=== PATIENT | female | born 1940 | race African-American/Black ===

== ENCOUNTER 2018-05-06 18:44 | Emergency (ER) | payer MEDICARE ==
[2018-05-06] MEDS ORDERED: Albuterol Sulfate 2.5 mg/0.5 ml Neb ONE (19:18)
[2018-05-06] MEDS ORDERED: Sodium Chloride For Inhalation 0.9% 3 ML NEB ONE (19:18)
--- NOTE | 2018-05-06 19:29 | RAD ---
CHEST ONE VIEW: 05/06/18 HISTORY: Dyspnea. COMPARISON: None available. There is opacification of the left hemithorax. Suggestion of possibly some slight volume loss change. Heart size is difficult to assess due to the opacification of left hemithorax. The right lung is sherman ar. IMPRESSION: 1. Postop sternotomy change. 2. Almost complete opacified left hemithorax. This could represent effusion or infiltrate. I do not see any definite surgical clips to suggest that this postoperative in nature. Clinical correlatio n is recommended. CT may be helpful in better assessment of the pleural versus parenchymal component of the left sided chest changes. POS: [facility]
[2018-05-06] MEDS ORDERED: cefTRIAXone\\ROCEPHIN 2 GM VIAL ONE (19:30)
[2018-05-06] MEDS ORDERED: methylPREDNISolone Sod Succ/PF 125 MG/2 ML VIAL ONE (19:30)
[2018-05-06] MEDS ORDERED: Magnesium Sulfate 2 GM/NS 0.9% 50 ML BAG ONE (19:30)
[2018-05-06] MEDS ORDERED: Sodium Chloride 0.9% 100 ML ONE (19:30)
[2018-05-06 19:36] LABS: #Basophils 0.1 thou/uL (0.0-0.2); #Lymphocytes 0.9 thou/uL (1.20-3.40); #Monocytes 0.7 thou/uL (0.11-0.59); #Neutrophils 4.9 thou/uL (1.40-6.50); %Basophils 1.9 % (0.0-1.0); %Eosinophils 0.2 % (0.0-10.0); %Lymphocytes 13.5 % (21.0-51.0); %Monocytes 11.1 % (0.0-10.0); %Neutrophils 73.3 % (42.0-75.0); Hemoglobin 15.8 g/dL (12.0-16.0); Mean Corpuscular HGB CONC 29.8 g/dL (32.0-36.0); Mean Corpuscular Hemoglobin 29.4 pg (27.0-31.0); Mean Corpuscular Volume 98.7 fL (78.0-98.0); Mean Platelet Volume 7.8 fL (7.4-10.4); Platelet Count 350 thou/uL (130-400); Red Blood Cell (RBC) Count 5.37 mill/uL (4.20-5.40); White Blood Cell (WBC) Count 6.6 thou/uL (4.8-10.8)
[2018-05-06] MEDS ORDERED: Sodium Chloride 0.9% 250 ML 250 ML ONE (19:42)
[2018-05-06 19:43] LABS: ALT (SGPT) 31 U/L (8-55); AST (SGOT) 26 U/L (5-34); Albumin 4.1 g/dL (3.4-4.8); Alkaline Phosphatase 85 U/L (40-150); Anion Gap 16 mmol/L (10-20); BUN (Urea Nitrogen) 9 mg/dL (9.8-20.1); Bilirubin, Total 0.8 mg/dL (0.2-1.2); Calc. Creatinine Clearance 0 mL/min (70-130); Carbon Dioxide 32 mmol/L (23-31); Chloride 87 mmol/L (98-107); Estimated GFR-MDRD Greater than 90; Globulin 4.7 g/dL (2.4-3.5); Glucose 151 mg/dL (83-110); Potassium 3.8 mmol/L (3.5-5.1); Protein, Total 8.8 g/dL (6.0-8.3); Sodium 131 mmol/L (136-145)
== END 2018-05-06 19:50 | disposition short-term general hospital (02) ==
LOC: NAV ERS 18:44
DX: J96.91 Respiratory failure, unspecified with hypoxia (principal); J18.1 Lobar pneumonia, unspecified organism; I10 Essential (primary) hypertension; J90 Pleural effusion, not elsewhere classified
CPT/HCPCS: 71045; 80053; 83605; 83880; 84484; 85025; 87040; 93005; 94760; 96374; 96375; J0696; J2930; J3370; J3475; J7050; J7611; J7620

== ENCOUNTER 2018-05-18 15:36 | Inpatient (IN) | payer MEDICARE ==
[2018-05-18] MEDS ORDERED: Dextrose 5% in Water 1,000 ML IV PRN (17:24)
[2018-05-18] MEDS ORDERED: HumaLOG 300 UNITS/3 ML VIAL SC PRN ×2 (17:24)
[2018-05-18] MEDS ORDERED: Dextrose 50% Abboject 50 ML SYRINGE SLOW IVP PRN (17:24)
[2018-05-18] MEDS: Mometasone/Formoterol 60 PUFF AER INH SCH (18:39)
--- NOTE | 2018-05-18 20:29 | HP ---
CHIEF COMPLAINT: Significant deconditioning for therapy. BRIEF HISTORY: This is a very pleasant 78-year-old, overweight, female, who was admitted to [facility] in [place] on 05/06/2018 with shortness of breath requiring mechanical ventilation and intubation. She apparently had significant opacification of the left lung and she underwent bronchoscopy, but cultures presently did not grow any organism. Her CT angiogram was negative for pulmonary embolism. She was on IV antibiotics, IV steroids, and breathing treatments, and slowly was tapered off and currently is on oral antibiotics, breathing treatments, and p.o. doxycycline. She was felt to be significantly weak and the only support is her and [place] and so she was felt to be a good candidate for inpatient rehabilitation at the [facility] facility. The patient is up in her bed. Denies any complaints. She still remains short of breath. Her spouse is in the room. Denies any fever or chills. Denies any chest pain or shortness of breath. Does have some dyspnea on exertion. PAST MEDICAL HISTORY: 1. Diabetes mellitus, type 2. 2. Hypertension. 3. Dyslipidemia. 4. Vitamin D deficiency. 5. Morbid obesity. PAST SURGICAL HISTORY: None documented. PSYCHOSOCIAL HISTORY: No tobacco, alcohol, or IV drug abuse. She and her live in the farm. MEDICATIONS: She has been transferred here on the following medications; 1. Amlodipine 10 mg daily. 2. Ecotrin 81 mg daily. 3. Calcium carbonate one tablet daily. 4. Carvedilol 12.5 mg b.i.d. 5. Vitamin D3 2000 international units daily. 6. Lovastatin 10 mg daily. 7. Metformin 500 mg b.i.d. 8. Nice-3 fatty acids one capsule daily. 9. Accupril 20 mg b.i.d. 10. Doxycycline 100 mg p.o. b.i.d., this is to go until May 25. 11. Lovenox 40 mg subcu daily. 12. Mucinex ER 600 mg p.o. b.i.d. 13. DuoNeb q.4 p.r.n. 14. Dulera 200/5 two puffs b.i.d., gargle after use. 15. Prednisone 10 mg q.a.m., which will be tapered. ALLERGIES: NO KNOWN DRUG ALLERGIES. FAMILY HISTORY: Noncontributory to current admission. REVIEW OF SYSTEMS: CARDIOVASCULAR SYSTEM: Denies any chest pain, PND, orthopnea, pedal edema, or palpitations. RESPIRATORY SYSTEM: Improving shortness of breath. She still has a cough. No hemoptysis. No pleuritic-type chest pain. GASTROINTESTINAL SYSTEM: Denies any nausea, vomiting, diarrhea, constipation, hematemesis, melena, or hematochezia. GENITOURINARY SYSTEM: Denies any frequency, urgency, dysuria, or hematuria. CENTRAL NERVOUS SYSTEM: Alert, awake, and oriented x3. Cranial nerves 2 through 12 intact. MOTOR SYSTEM: Just shows generalized weakness. LABORATORY DATA: Laboratory values from 05/16 shows a white count of 5.3, H and H are 14.3 and 46.8. Chemistry shows blood sugars of 87, 113, 91, 105, and 98; sodium 144; potassium 3.8; BUN and creatinine are 5 and 0.54. This is also from May 16. Last chest x-ray was done on 05/12 and it shows interval worsening of right basilar airspace opacities, but chest x-ray from May 16 shows that improved airspace opacities in right lung base. [id number] left and tiny right pleural effusions. Removal of endotracheal and nasogastric tube. IMPRESSION: 1. Community-acquired pneumonia, possibly bacterial. 2. Diabetes mellitus, type 2. 3. Hypertension. 4. Dyslipidemia. 5. Morbid obesity. 6. Significant deconditioning. 7. Improving hypoxemic-hypercapnic respiratory failure. PLAN: 1. Continue discharge medications. 2. 1800 calorie heart healthy ADA diet. 3. Accu-Cheks with sliding scale coverage. 4. DVT prophylaxis with Lovenox. 5. Decubitus precautions. 6. Stress ulcer prophylaxis. 7. Titrate oxygen. 8. Breathing treatments as needed. 9. Check CBC and BMP in the morning. 10. Consult PT/OT. 11. Discussed with the patient and spouse in detail. All questions answered. 12. Dr. Ilan Mckeon on-call this weekend. Job ID: [id number]
[2018-05-18] MEDS: Doxycycline 100 MG CAP PO SCH (20:44)
[2018-05-18] MEDS: Carvedilol 25 MG TAB PO SCH (20:45)
[2018-05-18] MEDS: guaiFENesin ER 600 MG TAB PO SCH (20:46)
[2018-05-18] MEDS: metFORMIN 500 MG TAB PO SCH (20:46)
[2018-05-18] MEDS: Aspirin 81 mg Enteric Coated Tablet PO SCH (20:46)
[2018-05-18] MEDS: Calcium Carbonate + Vit D 1 TAB PO SCH (21:01)
[2018-05-18] MEDS: Lisinopril 20 MG TAB PO SCH (21:03)
[2018-05-19 00:08] VITALS: BMI 42.9
[2018-05-19] MEDS: Mometasone/Formoterol 60 PUFF AER INH SCH ×2 (05:12→18:11)
[2018-05-19 05:25] LABS: Band 3 % (5-11); Eosinophils 2 % (0-10); Hemoglobin 12.8 g/dL (12.0-16.0); Lymphocytes 22 % (21-51); MDiff Complete? YES; Mean Corpuscular HGB CONC 30.3 g/dL (32.0-36.0); Mean Corpuscular Hemoglobin 29.4 pg (27.0-31.0); Mean Platelet Volume 7.5 fL (7.4-10.4); Monocytes 13 % (0-10); Neutrophil 60 % (42-75); Platelet Count 226 thou/uL (130-400); Platelet Morphology Comment Appears Adequate; RBC Distribution Width 14.4 % (11.5-14.5); RBC Morphology Normal; Red Blood Cell (RBC) Count 4.36 mill/uL (4.20-5.40); White Blood Cell (WBC) Count 4.6 thou/uL (4.8-10.8)
[2018-05-19 05:35] LABS: BUN (Urea Nitrogen) Less than 4 mg/dL (9.8-20.1); Calc. Creatinine Clearance 161 mL/min (70-130); Calcium 10.4 mg/dL (7.8-10.44); Estimated GFR-MDRD Greater than 90; Glucose 101 mg/dL (83-110)
[2018-05-19 05:39] LABS: Chloride 98 mmol/L (98-107); Potassium 3.2 mmol/L (3.5-5.1); Sodium 146 mmol/L (136-145)
[2018-05-19 06:07] LABS: Anion Gap 13 mmol/L (10-20); Carbon Dioxide 38 mmol/L (23-31)
[2018-05-19] MEDS: predniSONE 5 MG TAB PO SCH (08:36)
[2018-05-19] MEDS: Fish Oil 1,000 MG CAP PO SCH (08:36)
[2018-05-19] MEDS: Lisinopril 20 MG TAB PO SCH ×2 (08:36→21:10)
[2018-05-19] MEDS: Amlodipine 10 MG TAB PO SCH (08:37)
[2018-05-19] MEDS: Doxycycline 100 MG CAP PO SCH ×2 (08:37→21:10)
[2018-05-19] MEDS: Carvedilol 25 MG TAB PO SCH ×2 (08:37→21:10)
[2018-05-19] MEDS: metFORMIN 500 MG TAB PO SCH ×2 (08:38→21:10)
[2018-05-19] MEDS: Enoxaparin Sodium 40 MG/0.4 ML SYRINGE SC SCH (08:38)
[2018-05-19] MEDS: guaiFENesin ER 600 MG TAB PO SCH ×2 (08:39→21:10)
[2018-05-19] MEDS: Calcium Carbonate + Vit D 1 TAB PO SCH ×2 (08:39→21:11)
[2018-05-19] MEDS: Simvastatin 10 MG TAB PO SCH (21:08)
[2018-05-19] MEDS: Aspirin 81 mg Enteric Coated Tablet PO SCH (21:10)
[2018-05-20] MEDS: Mometasone/Formoterol 60 PUFF AER INH SCH ×2 (05:27→18:32)
[2018-05-20] MEDS: Amlodipine 10 MG TAB PO SCH (08:59)
[2018-05-20] MEDS: predniSONE 5 MG TAB PO SCH (08:59)
[2018-05-20] MEDS: Carvedilol 25 MG TAB PO SCH ×2 (09:00→20:51)
[2018-05-20] MEDS: Calcium Carbonate + Vit D 1 TAB PO SCH ×2 (09:00→20:53)
[2018-05-20] MEDS: metFORMIN 500 MG TAB PO SCH ×2 (09:01→20:53)
[2018-05-20] MEDS: Doxycycline 100 MG CAP PO SCH ×2 (09:01→20:50)
[2018-05-20] MEDS: guaiFENesin ER 600 MG TAB PO SCH ×2 (09:01→20:51)
[2018-05-20] MEDS: Enoxaparin Sodium 40 MG/0.4 ML SYRINGE SC SCH (09:01)
[2018-05-20] MEDS: Fish Oil 1,000 MG CAP PO SCH (09:01)
[2018-05-20] MEDS: Lisinopril 20 MG TAB PO SCH ×2 (09:01→20:52)
--- NOTE | 2018-05-20 09:40 | PRG ---
DATE OF SERVICE: 05/20/2018 This patient is a 78-year-old female, who developed significant pneumonia and was admitted and intubated at [facility]. She eventually was stabilized and extubated, but needed significant therapy. She was started on IV antibiotics, IV steroids, and breathing treatment was slowly tapered off. She was transferred here for physical therapy and occupational therapy to increase her strength and her stamina mainly for inpatient rehab. SUBJECTIVE: The patient has awakened this morning and states she is doing fine and has no complaints. She states she slept well and she is hungry. OBJECTIVE: VITAL SIGNS: Reveal blood pressure this morning 152/68, pulse 76, respirations 22, and O2 saturation 95% on 4 L. GENERAL: This is a well-developed, well-nourished, obese female, in no apparent distress at this time. HEENT: Reveals normocephalic and nontraumatic cranium. The pupils are equally round and reactive. Extraocular movements are intact. Nose and throat are slightly dry, but clear. NECK: Supple without masses, nodes, or bruits. CHEST: Distant and shallow breaths are noted. No rales, no rhonchi, no wheezes are noted. The patient has occasional cough, which is nonproductive. HEART: Reveals a regular rate and rhythm without murmurs, gallops, or rubs. ABDOMEN: Morbidly obese, soft, nontender without organomegaly. Normal bowel sounds are noted. No rebound or guarding is noted. : Deferred. EXTREMITIES: Reveal no clubbing, cyanosis, or edema. IMPRESSION: 1. Community-acquired pneumonia. 2. Diabetes, type 2. 3. Hypertension. 4. Hyperlipidemia. 5. Morbid obesity. 6. Significant deconditioning. 7. Improving hypoxemic hypercapnic respiratory failure. Zwkur-[id number] sugars reveal the patient's sugar yesterday morning was 84, before lunch 124, before supper 98, before bedtime 95, and this morning her fasting is 95, so her sugars were under excellent control. PLAN: 1. Continue present medication. 2. Continue 1800 calorie ADA diet. 3. Accu-Cheks a.c. and at bedtime and continue to monitor closely. 4. DVT prophylaxis with Lovenox. 5. Stress ulcer prophylaxis. 6. Decubitus precautions. 7. Titrate oxygen down as able. 8. Continue breathing treatments. 9. Continue Physical Therapy and Occupational Therapy. Job ID: [id number]
[2018-05-20] MEDS: Simvastatin 10 MG TAB PO SCH (20:50)
[2018-05-20] MEDS: Aspirin 81 mg Enteric Coated Tablet PO SCH (20:51)
[2018-05-21] MEDS: Mometasone/Formoterol 60 PUFF AER INH SCH ×2 (05:34→18:41)
--- NOTE | 2018-05-21 08:43 | PRG ---
DATE OF SERVICE: 05/21/2018 SUBJECTIVE: This patient is a 78-year-old white female, who developed a significant bilateral pneumonia with sherry-out lung. She had to be admitted to [facility], was intubated in the ICU. Started on IV antibiotics, IV steroids. She eventually was able to be extubated, but she was transferred here because of extreme weakness. She was here for physical therapy and occupational therapy to increase her strength and stamina. OBJECTIVE: GENERAL: The patient states she is doing okay. She is sleepy this morning as always. States she is hungry this morning. VITAL SIGNS: This morning, reveal blood pressure 111/51, pulse 75 to 94, respirations 18 to 20, O2 saturation 95% on 3.5 L, and T-max 98.1. GENERAL: This is a well-developed, well-nourished, obese white female, in no apparent distress at this time. HEENT: Reveals normocephalic, nontraumatic cranium. Pupils are equal, round, and reactive. Extraocular movements are intact. Nose and throat are moist this morning. NECK: Supple without masses, nodes, or bruits. CHEST: Reveals shallow breaths and distant breath sounds. No rales, no rhonchi, no wheezes are noted. The patient has no cough today. HEART: Reveals a regular rate and rhythm without murmurs, gallops, rubs. ABDOMEN: Morbidly obese, soft, nontender without organomegaly. Normal bowel sounds are noted. No rebound or guarding is noted. : Deferred. EXTREMITIES: Reveal no clubbing, cyanosis, or edema. IMPRESSION: 1. Diabetes type 2. 2. Community-acquired pneumonia. 3. Hypertension. 4. Hyperlipidemia. 5. Significant deconditioning. 6. Improving hypoxic-hypercapnic respiratory failure. 7. Morbid obesity. 8. Generalized weakness. PLAN: 1. Continue to monitor the patient's sugars closely. 2. Continue present medication. 3. Continue 1800 calorie ADA diet. 4. Accu-Cheks a.c. and h.s. 5. DVT prophylaxis with Lovenox. 6. Stress ulcer prophylaxis. 7. Decubitus precautions. 8. Titrate oxygen as able. 9. Continue breathing treatments. 10. Continue PT and OT. Job ID: [id number]
[2018-05-21] MEDS: predniSONE 5 MG TAB PO SCH (09:02)
[2018-05-21] MEDS: Calcium Carbonate + Vit D 1 TAB PO SCH ×2 (09:02→21:18)
[2018-05-21] MEDS: Amlodipine 10 MG TAB PO SCH (09:02)
[2018-05-21] MEDS: Enoxaparin Sodium 40 MG/0.4 ML SYRINGE SC SCH (09:03)
[2018-05-21] MEDS: Doxycycline 100 MG CAP PO SCH ×2 (09:03→21:17)
[2018-05-21] MEDS: Carvedilol 25 MG TAB PO SCH ×2 (09:03→21:17)
[2018-05-21] MEDS: Fish Oil 1,000 MG CAP PO SCH (09:03)
[2018-05-21] MEDS: metFORMIN 500 MG TAB PO SCH ×2 (09:04→21:17)
[2018-05-21] MEDS: guaiFENesin ER 600 MG TAB PO SCH ×2 (09:04→21:17)
[2018-05-21] MEDS: Lisinopril 20 MG TAB PO SCH ×2 (09:04→21:17)
[2018-05-21] MEDS: Simvastatin 10 MG TAB PO SCH (21:16)
[2018-05-21] MEDS: Aspirin 81 mg Enteric Coated Tablet PO SCH (21:17)
[2018-05-22] MEDS: Mometasone/Formoterol 60 PUFF AER INH SCH ×2 (05:26→18:34)
[2018-05-22] MEDS: Doxycycline 100 MG CAP PO SCH ×2 (08:52→21:40)
[2018-05-22] MEDS: Amlodipine 10 MG TAB PO SCH (08:52)
[2018-05-22] MEDS: Enoxaparin Sodium 40 MG/0.4 ML SYRINGE SC SCH (08:52)
[2018-05-22] MEDS: predniSONE 5 MG TAB PO SCH (08:52)
[2018-05-22] MEDS: Fish Oil 1,000 MG CAP PO SCH (08:53)
[2018-05-22] MEDS: Carvedilol 25 MG TAB PO SCH ×2 (08:53→21:40)
[2018-05-22] MEDS: metFORMIN 500 MG TAB PO SCH ×2 (08:54→21:41)
[2018-05-22] MEDS: guaiFENesin ER 600 MG TAB PO SCH ×2 (08:54→21:40)
[2018-05-22] MEDS: Lisinopril 20 MG TAB PO SCH ×2 (08:54→21:41)
[2018-05-22] MEDS: Calcium Carbonate + Vit D 1 TAB PO SCH ×2 (08:54→21:42)
[2018-05-22] MEDS ORDERED: Simethicone Chewable 80 MG TAB PO PRN (13:24)
--- NOTE | 2018-05-22 14:31 | PRG ---
DATE OF SERVICE: 05/22/2018 SUBJECTIVE: Ms. Valiente is doing well, improving with therapy except having some gas. Denies any chest pain or shortness of breath. Denies any nausea or vomiting. OBJECTIVE: VITAL SIGNS: She is afebrile. Heart rate 73, respirations 20, oxygen saturation on 3 L, blood pressure 130/57. CARDIOVASCULAR: S1 and S2 plus. RESPIRATORY: Normal vesicular breath sounds. ABDOMEN: Soft, obese, and nontender. Bowel sounds heard in all quadrants. EXTREMITIES: Without cyanosis or clubbing. Trace edema. LABORATORY DATA: Blood sugars are 91, 90, 96, and 93. IMPRESSION: 1. Diabetes mellitus, type 2. 2. Hypertension. 3. Dyslipidemia. 4. Vitamin D deficiency. 5. Morbid obesity. 6. Resolving hypoxemic respiratory failure. PLAN: 1. Start simethicone 160 mg p.o. t.i.d. p.r.n. 2. Advise nursing to titrate oxygen. 3. Continue physical therapy. 4. 1800 calorie heart healthy ADA diet. 5. DVT and stress ulcer prophylaxis. 6. Decubitus precautions. 7. Routine laboratory values. Job ID: [id number]
[2018-05-22] MEDS: Aspirin 81 mg Enteric Coated Tablet PO SCH (21:39)
[2018-05-22] MEDS: Simvastatin 10 MG TAB PO SCH (21:41)
[2018-05-23 05:31] LABS: #Eosinphils 0.1 thou/uL (0.0-0.7); #Lymphocytes 1.1 thou/uL (1.20-3.40); #Monocytes 0.5 thou/uL (0.11-0.59); #Neutrophils 2.4 thou/uL (1.40-6.50); %Eosinophils 2.6 % (0.0-10.0); %Lymphocytes 26.2 % (21.0-51.0); %Monocytes 11.1 % (0.0-10.0); %Neutrophils 59.2 % (42.0-75.0); Hemoglobin 11.8 g/dL (12.0-16.0); Mean Corpuscular HGB CONC 29.7 g/dL (32.0-36.0); Mean Corpuscular Hemoglobin 29.3 pg (27.0-31.0); Mean Corpuscular Volume 98.5 fL (78.0-98.0); Mean Platelet Volume 8.5 fL (7.4-10.4); Platelet Count 184 thou/uL (130-400); RBC Distribution Width 14.9 % (11.5-14.5); Red Blood Cell (RBC) Count 4.04 mill/uL (4.20-5.40); White Blood Cell (WBC) Count 4.1 thou/uL (4.8-10.8)
[2018-05-23 05:53] LABS: BUN (Urea Nitrogen) 7 mg/dL (9.8-20.1); Calc. Creatinine Clearance 167 mL/min (70-130); Estimated GFR-MDRD Greater than 90; Glucose 98 mg/dL (83-110)
[2018-05-23 06:03] LABS: Anion Gap 10 mmol/L (10-20); Chloride 93 mmol/L (98-107); Sodium 143 mmol/L (136-145)
[2018-05-23 06:05] LABS: Carbon Dioxide 43 mmol/L (23-31); Potassium 2.8 mmol/L (3.5-5.1)
[2018-05-23] MEDS: Mometasone/Formoterol 60 PUFF AER INH SCH ×2 (06:31→17:38)
[2018-05-23] MEDS: Potassium Chloride 20 MEQ TAB PO SCH ×2 (06:32→09:10)
[2018-05-23] MEDS: predniSONE 5 MG TAB PO SCH (08:11)
[2018-05-23] MEDS: metFORMIN 500 MG TAB PO SCH ×2 (09:09→20:52)
[2018-05-23] MEDS: Lisinopril 20 MG TAB PO SCH ×2 (09:09→20:51)
[2018-05-23] MEDS: Fish Oil 1,000 MG CAP PO SCH (09:09)
[2018-05-23] MEDS: Carvedilol 25 MG TAB PO SCH ×2 (09:09→20:51)
[2018-05-23] MEDS: Doxycycline 100 MG CAP PO SCH ×2 (09:09→20:51)
[2018-05-23] MEDS: Amlodipine 10 MG TAB PO SCH (09:09)
[2018-05-23] MEDS: guaiFENesin ER 600 MG TAB PO SCH ×2 (09:10→20:51)
[2018-05-23] MEDS: Enoxaparin Sodium 40 MG/0.4 ML SYRINGE SC SCH (09:11)
[2018-05-23] MEDS: Calcium Carbonate + Vit D 1 TAB PO SCH ×2 (09:11→20:50)
--- NOTE | 2018-05-23 13:48 | PRG ---
DATE OF SERVICE: 05/23/2018 SUBJECTIVE: Ms. Valiente is doing well. Denies any complaints. Slowly improving with therapy. Unfortunately, nursing is having a difficult time titrating her oxygen off, so she most likely will have to go home on oxygen, but when it comes to get, we will make the arrangements. Her potassium was low this morning. She denies any diarrhea, any nausea or vomiting. Potassium has been replaced. We will recheck potassium and magnesium level at 2 p.m. today. Discussed with nursing and no other questions or concerns. OBJECTIVE: VITAL SIGNS: She is afebrile. Heart rate 88, respirations 20, oxygen saturation 92% on 2 L via nasal cannula, and blood pressure is 133/60. CARDIOVASCULAR: S1 and S2 plus. RESPIRATORY: Normal vesicular breath sounds with occasional rhonchi. ABDOMEN: Soft, obese, nontender. Bowel sounds heard in all quadrants. EXTREMITIES: Without cyanosis or clubbing. Trace edema. CENTRAL NERVOUS SYSTEM: Alert, awake, and oriented x3. Cranial nerves 2 through 12 are intact. Motor system, generalized weakness. LABORATORY VALUES: Sodium 143, potassium 2.8, BUN and creatinine of 7 and 0.5. Blood count shows a white count of 4.1, hemoglobin and hematocrit are 11.8 and 39.8. IMPRESSION: 1. Improving pneumonia, community acquired. 2. Hypokalemia, unknown etiology. 3. Morbid obesity. 4. Hypoxemia. 5. Dyslipidemia. 6. Hypertension. PLAN: 1. Continue current medications. 2. 1800-calorie heart healthy ADA diet. 3. DVT and stress ulcer prophylaxis. 4. Decubitus precautions. 5. Replace potassium. 6. Decrease prednisone to 5 mg daily. 7. Continue physical therapy. 8. Discussed with the patient and nursing in detail. All questions answered. Job ID: [id number]
[2018-05-23 14:29] LABS: Magnesium 1.5 mg/dL (1.6-2.6)
[2018-05-23] MEDS: Aspirin 81 mg Enteric Coated Tablet PO SCH (20:50)
[2018-05-23] MEDS: Simvastatin 10 MG TAB PO SCH (20:52)
[2018-05-24] MEDS: Mometasone/Formoterol 60 PUFF AER INH SCH ×2 (06:01→18:31)
[2018-05-24] MEDS: Amlodipine 10 MG TAB PO SCH (08:30)
[2018-05-24] MEDS: predniSONE 5 MG TAB PO SCH (08:30)
[2018-05-24] MEDS: Doxycycline 100 MG CAP PO SCH ×2 (08:32→20:42)
[2018-05-24] MEDS: Carvedilol 25 MG TAB PO SCH ×2 (08:32→20:42)
[2018-05-24] MEDS: Calcium Carbonate + Vit D 1 TAB PO SCH ×2 (08:32→20:41)
[2018-05-24] MEDS: Enoxaparin Sodium 40 MG/0.4 ML SYRINGE SC SCH (08:32)
[2018-05-24] MEDS: guaiFENesin ER 600 MG TAB PO SCH ×3 (08:33→22:45)
[2018-05-24] MEDS: metFORMIN 500 MG TAB PO SCH ×2 (08:33→20:43)
[2018-05-24] MEDS: Lisinopril 20 MG TAB PO SCH ×2 (08:33→20:43)
[2018-05-24] MEDS: Fish Oil 1,000 MG CAP PO SCH (08:33)
--- NOTE | 2018-05-24 14:20 | PRG ---
DATE OF SERVICE: 05/24/2018 SUBJECTIVE: Ms. Valiente is doing well except for some gurgling sensation in her ears when she swallows or yawns. No chest pain or shortness of breath. She is down to 3 L of oxygen. She is participating with therapy. Her prednisone has been decreased to 5 mg daily from today. We will add Mucinex. No other concerns or questions. OBJECTIVE: VITAL SIGNS: She is afebrile. Heart rate 70, respirations 20, oxygen saturation 96% on 3 L, blood pressure 129/61. CARDIOVASCULAR: S1 and S2 plus. RESPIRATORY: Normal vesicular breath sounds. ABDOMEN: Soft, obese, nontender. Bowel sounds heard in all quadrants. EXTREMITIES: Without cyanosis, clubbing. Peripheral pulses are palpable. CENTRAL NERVOUS SYSTEM: Alert, awake, and oriented x3. Cranial nerves 2 through 12 intact. Motor system, grossly nonfocal. LABORATORY VALUES: Repeat potassium level is up to 4.0, and magnesium was slightly low at 1.5. Blood sugars are 127, 93, 94, and 90. IMPRESSION: 1. Hypomagnesemia. 2. Resolving pneumonitis. 3. Morbid obesity. 4. Resolving acute hypoxemic respiratory failure. 5. Diabetes mellitus type 2. 6. Hypertension. PLAN: 1. Replace magnesium with Mag-Ox 400 mg p.o. t.i.d. 2. Mucinex 1200 mg p.o. b.i.d. 3. Continue current medications. 4. Physical therapy. 5. Nutritional support. 6. 1800 calorie heart healthy ADA diet. 7. Accu-Cheks, sliding scale coverage. Job ID: [id number]
[2018-05-24] MEDS: Aspirin 81 mg Enteric Coated Tablet PO SCH (20:41)
[2018-05-24] MEDS: Magnesium Oxide 400 MG TAB PO SCH (20:43)
[2018-05-24] MEDS: Simvastatin 10 MG TAB PO SCH (20:43)
[2018-05-25] MEDS: Mometasone/Formoterol 60 PUFF AER INH SCH ×2 (05:48→18:29)
[2018-05-25] MEDS: Amlodipine 10 MG TAB PO SCH (08:30)
[2018-05-25] MEDS: predniSONE 5 MG TAB PO SCH (08:30)
[2018-05-25] MEDS: Calcium Carbonate + Vit D 1 TAB PO SCH ×2 (08:31→20:26)
[2018-05-25] MEDS: Doxycycline 100 MG CAP PO SCH ×2 (08:32→20:28)
[2018-05-25] MEDS: Enoxaparin Sodium 40 MG/0.4 ML SYRINGE SC SCH (08:32)
[2018-05-25] MEDS: Carvedilol 25 MG TAB PO SCH ×2 (08:32→20:28)
[2018-05-25] MEDS: Fish Oil 1,000 MG CAP PO SCH (08:33)
[2018-05-25] MEDS: Magnesium Oxide 400 MG TAB PO SCH ×2 (08:33→20:28)
[2018-05-25] MEDS: metFORMIN 500 MG TAB PO SCH ×2 (08:33→20:28)
[2018-05-25] MEDS: Lisinopril 20 MG TAB PO SCH ×2 (08:33→20:28)
[2018-05-25] MEDS: guaiFENesin ER 600 MG TAB PO SCH ×2 (08:33→20:28)
--- NOTE | 2018-05-25 14:20 | PRG ---
DATE OF SERVICE: 05/25/2018 SUBJECTIVE: Ms. Valiente is doing well. She is sitting in bed with oxygen cannula in her nostril, but oxygen is not turned on. Checked her oxygen on room air and it was 79%, turned it back to 3 L and went up to 93%. She did not complain of any shortness of breath during this time. OBJECTIVE: VITAL SIGNS: She is afebrile, heart rate 72, respirations 22, blood pressure 120/60, and oxygen saturation 93% on 3 L. CARDIOVASCULAR: S1 and S2 plus. RESPIRATORY: Normal vesicular breath sounds with occasional rhonchi. ABDOMEN: Soft, obese, nontender. Bowel sounds heard in all quadrants. EXTREMITIES: Without cyanosis, clubbing. Trace edema. CENTRAL NERVOUS SYSTEM: Alert, awake, and oriented x3. Cranial nerves 2 through 12 intact. Grossly nonfocal. LABORATORY DATA: Blood sugars are 90, 84, 103, 99, and 98. IMPRESSION: 1. Improving community-acquired pneumonia. 2. Hypoxemia due to acute hypoxemic respiratory failure. 3. Diabetes mellitus type 2. 4. Deconditioning. 5. Obesity. 6. Hypertension. PLAN: 1. Continue current medications. 2. 1800 calorie heart healthy ADA diet. 3. Accu-Cheks with sliding scale coverage. 4. DVT and stress ulcer prophylaxis. 5. Decubitus precautions. 6. Routine laboratory values. 7. Titrate oxygen. 8. Breathing treatments as needed. 9. Continue physical therapy. 10. Discussed with the patient in detail. All questions answered. Job ID: [id number]
[2018-05-25] MEDS: Simvastatin 10 MG TAB PO SCH (20:26)
[2018-05-25] MEDS: Aspirin 81 mg Enteric Coated Tablet PO SCH (20:28)
[2018-05-26] MEDS: Mometasone/Formoterol 60 PUFF AER INH SCH ×2 (05:47→17:52)
[2018-05-26] MEDS: Enoxaparin Sodium 40 MG/0.4 ML SYRINGE SC SCH (08:46)
[2018-05-26] MEDS: Calcium Carbonate + Vit D 1 TAB PO SCH ×2 (08:46→20:14)
[2018-05-26] MEDS: Carvedilol 25 MG TAB PO SCH ×2 (08:47→20:15)
[2018-05-26] MEDS: Fish Oil 1,000 MG CAP PO SCH (08:47)
[2018-05-26] MEDS: metFORMIN 500 MG TAB PO SCH ×2 (08:47→20:17)
[2018-05-26] MEDS: guaiFENesin ER 600 MG TAB PO SCH ×2 (08:47→20:14)
[2018-05-26] MEDS: Lisinopril 20 MG TAB PO SCH ×2 (08:48→20:14)
[2018-05-26] MEDS: Magnesium Oxide 400 MG TAB PO SCH ×2 (08:48→20:17)
[2018-05-26] MEDS: Amlodipine 10 MG TAB PO SCH (08:48)
[2018-05-26] MEDS: predniSONE 5 MG TAB PO SCH (08:49)
[2018-05-26] MEDS: Aspirin 81 mg Enteric Coated Tablet PO SCH (20:14)
[2018-05-26] MEDS: Simvastatin 10 MG TAB PO SCH (20:16)
[2018-05-27] MEDS: Mometasone/Formoterol 60 PUFF AER INH SCH ×2 (05:56→17:29)
[2018-05-27] MEDS: Lisinopril 20 MG TAB PO SCH ×2 (09:33→20:22)
[2018-05-27] MEDS: guaiFENesin ER 600 MG TAB PO SCH ×2 (09:34→20:23)
[2018-05-27] MEDS: Calcium Carbonate + Vit D 1 TAB PO SCH ×2 (09:34→20:21)
[2018-05-27] MEDS: metFORMIN 500 MG TAB PO SCH ×2 (09:34→20:24)
[2018-05-27] MEDS: Fish Oil 1,000 MG CAP PO SCH (09:34)
[2018-05-27] MEDS: Magnesium Oxide 400 MG TAB PO SCH ×2 (09:34→20:24)
[2018-05-27] MEDS: Amlodipine 10 MG TAB PO SCH (09:35)
[2018-05-27] MEDS: predniSONE 5 MG TAB PO SCH (09:35)
[2018-05-27] MEDS: Carvedilol 25 MG TAB PO SCH ×2 (09:36→20:23)
[2018-05-27] MEDS: Enoxaparin Sodium 40 MG/0.4 ML SYRINGE SC SCH (09:38)
--- NOTE | 2018-05-27 16:13 | PRG ---
DATE OF SERVICE: 05/27/2018 SUBJECTIVE: Ms. Valiente is doing well. Denies any complaints, resting comfortably, tolerating her therapy. No PND or orthopnea. Cough has pretty much resolved. Continues to need oxygen. OBJECTIVE: VITAL SIGNS: She is afebrile. Heart rate is 66, respirations 20, oxygen saturation 100% on 3 L nasal cannula, and blood pressure 123/59. CARDIOVASCULAR: S1 and S2 plus. RESPIRATORY: Normal vesicular breath sounds. ABDOMEN: Soft, obese, nontender. Bowel sounds heard in all quadrants. EXTREMITIES: Without cyanosis, clubbing. Peripheral pulses are palpable. CENTRAL NERVOUS SYSTEM: Alert, awake, and oriented x3. Cranial nerves 2 through 12 grossly intact. Motor system examination is grossly nonfocal. LABORATORY DATA: Blood sugars are 115, 82, 96, 101, and 89. IMPRESSION: 1. Resolving community-acquired pneumonia. 2. Persistent hypoxemia, requiring oxygen. 3. Diabetes mellitus type 2. 4. Hypertension. 5. Deconditioning. 6. Morbid obesity. PLAN: 1. Continue current medications. 2. 1800-calorie heart healthy ADA diet. 3. Accu-Cheks with sliding scale coverage. 4. DVT and stress ulcer prophylaxis. 5. Decubitus precautions. 6. Titrate oxygen. 7. Continue therapy. 8. Routine laboratory values. Job ID: [id number]
[2018-05-27] MEDS: Simvastatin 10 MG TAB PO SCH (20:22)
[2018-05-27] MEDS: Aspirin 81 mg Enteric Coated Tablet PO SCH (20:22)
[2018-05-28] MEDS: Mometasone/Formoterol 60 PUFF AER INH SCH ×2 (05:58→18:04)
[2018-05-28] MEDS: predniSONE 5 MG TAB PO SCH (08:26)
[2018-05-28] MEDS: Amlodipine 10 MG TAB PO SCH (08:26)
[2018-05-28] MEDS: guaiFENesin ER 600 MG TAB PO SCH ×2 (08:26→20:19)
[2018-05-28] MEDS: Calcium Carbonate + Vit D 1 TAB PO SCH ×2 (08:26→20:18)
[2018-05-28] MEDS: Fish Oil 1,000 MG CAP PO SCH (08:26)
[2018-05-28] MEDS: Enoxaparin Sodium 40 MG/0.4 ML SYRINGE SC SCH (08:26)
[2018-05-28] MEDS: Carvedilol 25 MG TAB PO SCH ×2 (08:26→20:20)
[2018-05-28] MEDS: Magnesium Oxide 400 MG TAB PO SCH ×2 (08:27→20:19)
[2018-05-28] MEDS: Lisinopril 20 MG TAB PO SCH ×2 (08:27→20:19)
[2018-05-28] MEDS: metFORMIN 500 MG TAB PO SCH ×2 (08:27→20:20)
--- NOTE | 2018-05-28 15:36 | PRG ---
DATE OF SERVICE: 05/28/2018 SUBJECTIVE: Ms. Valiente was doing well. Denies any complaints except constipation. Her [id number] is in the room. No fever or chills. No chest pain or shortness of breath. OBJECTIVE: VITAL SIGNS: She is afebrile. Heart rate 64, respirations 20, oxygen saturation 97%, blood pressure 123/58. CARDIOVASCULAR: S1, S2 plus. RESPIRATORY: Normal vesicular breath sounds. ABDOMEN: Soft, obese, nontender, bowel sounds heard in all quadrants. EXTREMITIES: Without cyanosis, clubbing. She is down to 2 L of oxygen. CENTRAL NERVOUS SYSTEM: Alert, awake, and oriented x3. Cranial nerves 2 through 12 intact. Motor system examination is grossly nonfocal. LABORATORY DATA: Blood sugars are 116, 107, 86, and 103. IMPRESSION: 1. Resolving community-acquired pneumonia. 2. Resolving hypoxemic respiratory failure. 3. Diabetes mellitus type 2. 4. Hypertension. 5. Improving deconditioning. 6. Constipation. PLAN: 1. Continue current medications. 2. Milk of magnesia 30 mL p.o. b.i.d. p.r.n. and Dulcolax suppository b.i.d. p.r.n. 3. Continue to titrate oxygen. 4. DVT and stress ulcer prophylaxis. 5. Decubitus precautions. 6. Stop prednisone after tomorrow's dose. 7. Physical therapy. Discussed with patient and family in detail. All questions answered. Job ID: [id number]
[2018-05-28] MEDS: Milk Of Magnesia 30 ML UDCUP PO PRN (18:03)
[2018-05-28] MEDS: Aspirin 81 mg Enteric Coated Tablet PO SCH (20:19)
[2018-05-28] MEDS: Simvastatin 10 MG TAB PO SCH (20:19)
[2018-05-29 05:27] LABS: #Eosinphils 0.1 thou/uL (0.0-0.7); #Lymphocytes 1.1 thou/uL (1.20-3.40); #Monocytes 0.4 thou/uL (0.11-0.59); #Neutrophils 1.7 thou/uL (1.40-6.50); %Basophils 1.1 % (0.0-1.0); %Eosinophils 4.4 % (0.0-10.0); %Lymphocytes 32.8 % (21.0-51.0); %Monocytes 11.8 % (0.0-10.0); %Neutrophils 49.9 % (42.0-75.0); Hemoglobin 11.7 g/dL (12.0-16.0); Mean Corpuscular HGB CONC 29.4 g/dL (32.0-36.0); Mean Corpuscular Hemoglobin 28.9 pg (27.0-31.0); Mean Corpuscular Volume 98.1 fL (78.0-98.0); Mean Platelet Volume 7.6 fL (7.4-10.4); Platelet Count 222 thou/uL (130-400); RBC Distribution Width 15.3 % (11.5-14.5); Red Blood Cell (RBC) Count 4.05 mill/uL (4.20-5.40); White Blood Cell (WBC) Count 3.4 thou/uL (4.8-10.8)
[2018-05-29 05:37] LABS: BUN (Urea Nitrogen) 7 mg/dL (9.8-20.1); Calc. Creatinine Clearance 167 mL/min (70-130); Calcium 10.5 mg/dL (7.8-10.44); Estimated GFR-MDRD Greater than 90; Glucose 95 mg/dL (83-110)
[2018-05-29 05:51] LABS: Chloride 101 mmol/L (98-107); Potassium 3.8 mmol/L (3.5-5.1); Sodium 144 mmol/L (136-145)
[2018-05-29] MEDS: Mometasone/Formoterol 60 PUFF AER INH SCH ×2 (05:53→18:19)
[2018-05-29 05:56] LABS: Carbon Dioxide 34 mmol/L (23-31)
[2018-05-29 06:02] LABS: Anion Gap 13 mmol/L (10-20)
[2018-05-29] MEDS: predniSONE 5 MG TAB PO SCH (08:42)
[2018-05-29] MEDS: Calcium Carbonate + Vit D 1 TAB PO SCH (08:42)
[2018-05-29] MEDS: Amlodipine 10 MG TAB PO SCH (08:42)
[2018-05-29] MEDS: Carvedilol 25 MG TAB PO SCH ×2 (08:43→20:36)
[2018-05-29] MEDS: Enoxaparin Sodium 40 MG/0.4 ML SYRINGE SC SCH (08:43)
[2018-05-29] MEDS: guaiFENesin ER 600 MG TAB PO SCH ×2 (08:43→20:36)
[2018-05-29] MEDS: Fish Oil 1,000 MG CAP PO SCH (08:43)
[2018-05-29] MEDS: metFORMIN 500 MG TAB PO SCH ×2 (08:44→20:35)
[2018-05-29] MEDS: Magnesium Oxide 400 MG TAB PO SCH ×2 (08:44→20:35)
[2018-05-29] MEDS: Lisinopril 20 MG TAB PO SCH ×2 (08:44→20:35)
[2018-05-29] MEDS: Milk Of Magnesia 30 ML UDCUP PO PRN (13:36)
[2018-05-29] MEDS: Bisacodyl 10 MG SUPP PR PRN (13:36)
--- NOTE | 2018-05-29 13:49 | PRG ---
DATE OF SERVICE: 05/29/2018 SUBJECTIVE: Ms. Valiente is doing well. Denies any complaints except for persistent constipation. She is agreeable to take the suppository. No chest pain or shortness of breath. Does have some sinus drainage. No fever or chills. No family at bedside. OBJECTIVE: VITAL SIGNS: She is afebrile. Heart rate 65, respirations 18, oxygen saturation 96% on 2 L, and blood pressure is 123/59. CARDIOVASCULAR: S1 and S2 plus. RESPIRATORY: Normal vesicular breath sounds. ABDOMEN: Soft, obese, and nontender. Bowel sounds heard in all quadrants. EXTREMITIES: Without cyanosis or clubbing. Peripheral pulses are palpable. CENTRAL NERVOUS SYSTEM: Alert, awake, and oriented x3. Cranial nerves 2 through 12 intact. Motor system examination is grossly nonfocal. LABORATORY VALUES: White count of 3.4, H and H are 11.7 and 39.7. Sodium 144, potassium 3.8, BUN and creatinine 7 and 0.50. Blood sugars are 122, 101, 95, 82, and 109. Calcium was mildly elevated at 10.5; on May 23, it was 11; on May 19, it was 10.4. We will continue to monitor. IMPRESSION: 1. Hypercalcemia. 2. Resolving community-acquired pneumonia. 3. Diabetes mellitus, type 2. 4. Hypertension. 5. Dyslipidemia. 6. Morbid obesity. 7. Constipation. PLAN: 1. Continue milk of magnesia, and advised her to use the Dulcolax suppository as needed. 2. 1800 calorie heart healthy ADA diet. 3. We will stop her calcium supplementation. 4. Continue physical therapy. 5. Titrate oxygen. 6. DVT and stress ulcer prophylaxis. 7. Decubitus precautions. 8. Routine laboratory values. 9. Discussed with the patient in detail and all questions answered. Job ID: [id number]
[2018-05-29] MEDS: Simvastatin 10 MG TAB PO SCH (20:35)
[2018-05-29] MEDS: Aspirin 81 mg Enteric Coated Tablet PO SCH (20:36)
[2018-05-30] MEDS: Mometasone/Formoterol 60 PUFF AER INH SCH ×2 (05:38→18:25)
[2018-05-30] MEDS: Amlodipine 10 MG TAB PO SCH (08:58)
[2018-05-30] MEDS: Carvedilol 25 MG TAB PO SCH ×2 (08:59→20:21)
[2018-05-30] MEDS: Enoxaparin Sodium 40 MG/0.4 ML SYRINGE SC SCH (08:59)
[2018-05-30] MEDS: guaiFENesin ER 600 MG TAB PO SCH ×2 (09:00→20:21)
[2018-05-30] MEDS: Fish Oil 1,000 MG CAP PO SCH (09:00)
[2018-05-30] MEDS: Lisinopril 20 MG TAB PO SCH ×2 (09:00→20:21)
[2018-05-30] MEDS: metFORMIN 500 MG TAB PO SCH ×2 (09:01→20:21)
[2018-05-30] MEDS: Magnesium Oxide 400 MG TAB PO SCH ×2 (09:01→20:21)
--- NOTE | 2018-05-30 13:56 | PRG ---
DATE OF SERVICE: 05/30/2018 SUBJECTIVE: Ms. Valiente is resting in bed. She states that she did have a bowel movement. She denies any nausea or vomiting. She denies any chest pain or shortness of breath. No fever or chills. Tolerating therapy. No family at bedside. OBJECTIVE: VITAL SIGNS: She is afebrile. Heart rate is 64, respirations are 20, oxygen saturation is 92% on 2 L, blood pressure is 117/56. CARDIOVASCULAR: S1, S2 plus. RESPIRATORY: Normal vesicular breath sounds with decreased air entry at the bases. ABDOMEN: Soft, obese, nontender. Bowel sounds heard in all quadrants. EXTREMITIES: Without cyanosis or clubbing. Peripheral pulses are palpable. CENTRAL NERVOUS SYSTEM: Alert, awake, and oriented x3. Cranial nerves 2 through 12 intact. Motor system examination shows generalized weakness. LABORATORY VALUES: Shows blood sugars of 109, 96, 87, 96, and 82. IMPRESSION: 1. Resolving community-acquired pneumonia. 2. Improving acute hypoxemic respiratory failure. 3. Diabetes mellitus type 2. 4. Hypertension. 5. Dyslipidemia. 6. Morbid obesity. 7. Resolved constipation. PLAN: 1. Continue current medications. 2. 1800 calorie heart healthy ADA diet. 3. Titrate oxygen for breathing treatments as needed. 4. Bowel regimen. 5. DVT and stress ulcer prophylaxis. 6. Start Colace b.i.d. 7. Routine laboratory values. 8. Discussed with the patient in detail. All questions answered. Job ID: [id number]
[2018-05-30] MEDS: Simvastatin 10 MG TAB PO SCH (20:20)
[2018-05-30] MEDS: Docusate 100 MG CAP PO SCH (20:20)
[2018-05-30] MEDS: Aspirin 81 mg Enteric Coated Tablet PO SCH (20:21)
[2018-05-31] MEDS: Mometasone/Formoterol 60 PUFF AER INH SCH ×2 (05:36→18:57)
[2018-05-31] MEDS: Enoxaparin Sodium 40 MG/0.4 ML SYRINGE SC SCH (09:40)
[2018-05-31] MEDS: guaiFENesin ER 600 MG TAB PO SCH ×2 (09:41→20:39)
[2018-05-31] MEDS: Docusate 100 MG CAP PO SCH ×2 (09:41→20:39)
[2018-05-31] MEDS: Amlodipine 10 MG TAB PO SCH (09:41)
[2018-05-31] MEDS: Magnesium Oxide 400 MG TAB PO SCH ×2 (09:41→20:39)
[2018-05-31] MEDS: Lisinopril 20 MG TAB PO SCH ×2 (09:41→20:39)
[2018-05-31] MEDS: Carvedilol 25 MG TAB PO SCH ×2 (09:42→20:38)
[2018-05-31] MEDS: Fish Oil 1,000 MG CAP PO SCH (09:42)
[2018-05-31] MEDS: metFORMIN 500 MG TAB PO SCH ×2 (09:42→20:39)
[2018-05-31] MEDS: Aspirin 81 mg Enteric Coated Tablet PO SCH (20:38)
[2018-05-31] MEDS: Simvastatin 10 MG TAB PO SCH (20:39)
[2018-06-01] MEDS: Mometasone/Formoterol 60 PUFF AER INH SCH (05:43)
[2018-06-01] MEDS: Fish Oil 1,000 MG CAP PO SCH (09:00)
[2018-06-01] MEDS: guaiFENesin ER 600 MG TAB PO SCH ×2 (09:00→20:46)
[2018-06-01] MEDS: Magnesium Oxide 400 MG TAB PO SCH ×2 (09:01→20:47)
[2018-06-01] MEDS: Enoxaparin Sodium 40 MG/0.4 ML SYRINGE SC SCH (09:01)
[2018-06-01] MEDS: Docusate 100 MG CAP PO SCH ×2 (09:01→20:46)
[2018-06-01] MEDS: Carvedilol 25 MG TAB PO SCH ×2 (09:01→20:46)
[2018-06-01] MEDS: Amlodipine 10 MG TAB PO SCH (09:01)
[2018-06-01] MEDS: metFORMIN 500 MG TAB PO SCH ×2 (09:01→20:47)
[2018-06-01] MEDS: Lisinopril 20 MG TAB PO SCH ×2 (09:01→20:47)
--- NOTE | 2018-06-01 13:48 | PRG ---
DATE OF SERVICE: 06/01/2018 SUBJECTIVE: Ms. Valiente is doing well. Denies any complaints. Ambulated about 380 feet. Still requires oxygen, but she is down to about 1-1/2 L. Currently, she still has some issues with constipation. I advised her to take the laxative as ordered. She is on the stool softener. Discussed with her niece. No concerns or questions. OBJECTIVE: VITAL SIGNS: She is afebrile. Heart rate 68, respirations 16, oxygen saturation 99% on 1.5 L. Blood pressure is 117/56. CARDIOVASCULAR SYSTEM: S1, S2 plus. RESPIRATORY SYSTEMS: Normal vesicular breath sounds. ABDOMEN: Soft, obese. Nontender. Bowel sounds heard in all quadrants. EXTREMITIES: Without cyanosis, clubbing. CENTRAL NERVOUS SYSTEM: Alert, awake, and oriented x3. Cranial nerves 2 through 12 intact. MOTOR SYSTEM: Examination is grossly nonfocal. IMPRESSION: 1. Resolving community-acquired pneumonia. 2. Resolving acute hypoxemic respiratory failure. 3. Diabetes mellitus type 2, well controlled. Her last blood sugars have been 81, 87, 84, 117, 93 and 91. 4. Hypertension. 5. Dyslipidemia. 6. Morbid obesity. 7. Improving deconditioning. PLAN: 1. Continue current medications. 2. 1800 calorie heart-healthy ADA diet. 3. Accu-Cheks with sliding scale coverage. 4. Monitor blood pressure and adjust medications as needed. 5. Titrate oxygen. 6. DVT and stress ulcer prophylaxis. 7. Decubitus precautions. 8. Routine laboratory values. 9. Physical therapy. 10. Discussed with the patient and family in detail, and all questions were answered. Job ID: [id number]
[2018-06-01] MEDS: Aspirin 81 mg Enteric Coated Tablet PO SCH (20:46)
[2018-06-01] MEDS: Simvastatin 10 MG TAB PO SCH (20:47)
[2018-06-02] MEDS: Mometasone/Formoterol 60 PUFF AER INH SCH ×2 (05:50→18:19)
[2018-06-02] MEDS: Carvedilol 25 MG TAB PO SCH ×2 (09:28→21:28)
[2018-06-02] MEDS: Fish Oil 1,000 MG CAP PO SCH (09:28)
[2018-06-02] MEDS: guaiFENesin ER 600 MG TAB PO SCH ×2 (09:29→21:28)
[2018-06-02] MEDS: Docusate 100 MG CAP PO SCH ×2 (09:29→21:27)
[2018-06-02] MEDS: Magnesium Oxide 400 MG TAB PO SCH ×2 (09:29→21:27)
[2018-06-02] MEDS: Lisinopril 20 MG TAB PO SCH ×2 (09:29→21:27)
[2018-06-02] MEDS: metFORMIN 500 MG TAB PO SCH ×2 (09:29→21:27)
[2018-06-02] MEDS: Enoxaparin Sodium 40 MG/0.4 ML SYRINGE SC SCH (09:30)
[2018-06-02] MEDS: Amlodipine 10 MG TAB PO SCH (09:31)
[2018-06-02] MEDS: Bisacodyl 10 MG SUPP PR PRN (18:20)
[2018-06-02] MEDS: Aspirin 81 mg Enteric Coated Tablet PO SCH (21:27)
[2018-06-02] MEDS: Simvastatin 10 MG TAB PO SCH (21:28)
[2018-06-03] MEDS: Mometasone/Formoterol 60 PUFF AER INH SCH ×3 (05:38→18:24)
[2018-06-03] MEDS: Carvedilol 25 MG TAB PO SCH ×2 (09:33→20:55)
[2018-06-03] MEDS: Amlodipine 10 MG TAB PO SCH (09:33)
[2018-06-03] MEDS: guaiFENesin ER 600 MG TAB PO SCH ×2 (09:34→20:54)
[2018-06-03] MEDS: Lisinopril 20 MG TAB PO SCH ×2 (09:34→20:57)
[2018-06-03] MEDS: Docusate 100 MG CAP PO SCH ×2 (09:34→20:55)
[2018-06-03] MEDS: Enoxaparin Sodium 40 MG/0.4 ML SYRINGE SC SCH (09:34)
[2018-06-03] MEDS: Fish Oil 1,000 MG CAP PO SCH (09:34)
[2018-06-03] MEDS: Magnesium Oxide 400 MG TAB PO SCH ×2 (09:35→20:55)
[2018-06-03] MEDS: metFORMIN 500 MG TAB PO SCH ×2 (09:35→20:55)
[2018-06-03] MEDS: Simvastatin 10 MG TAB PO SCH (20:55)
[2018-06-03] MEDS: Aspirin 81 mg Enteric Coated Tablet PO SCH (20:57)
[2018-06-04] MEDS: Mometasone/Formoterol 60 PUFF AER INH SCH ×2 (05:30→18:12)
[2018-06-04] MEDS: Amlodipine 10 MG TAB PO SCH (10:10)
[2018-06-04] MEDS: Carvedilol 25 MG TAB PO SCH ×2 (10:10→20:46)
[2018-06-04] MEDS: Lisinopril 20 MG TAB PO SCH ×2 (10:11→20:47)
[2018-06-04] MEDS: Fish Oil 1,000 MG CAP PO SCH (10:11)
[2018-06-04] MEDS: Docusate 100 MG CAP PO SCH ×2 (10:11→20:46)
[2018-06-04] MEDS: guaiFENesin ER 600 MG TAB PO SCH ×2 (10:11→20:46)
[2018-06-04] MEDS: Enoxaparin Sodium 40 MG/0.4 ML SYRINGE SC SCH (10:11)
[2018-06-04] MEDS: Magnesium Oxide 400 MG TAB PO SCH ×2 (10:12→20:46)
[2018-06-04] MEDS: metFORMIN 500 MG TAB PO SCH ×2 (10:12→20:46)
[2018-06-04] MEDS: Aspirin 81 mg Enteric Coated Tablet PO SCH (20:46)
[2018-06-04] MEDS: Simvastatin 10 MG TAB PO SCH (20:48)
[2018-06-05] MEDS: Mometasone/Formoterol 60 PUFF AER INH SCH ×2 (05:51→18:45)
--- NOTE | 2018-06-05 07:04 | PRG ---
DATE OF SERVICE: 06/03/2018 SUBJECTIVE: The patient lying in bed, talking to her family, feels well. No complaints of shortness of breath or chest pain. She is having no cough, still on 1 L of oxygen. OBJECTIVE: VITAL SIGNS: Shows O2 saturation of 96% on 1.5 L, pulse 65, blood pressure 133/60, afebrile. LUNGS: Clear. CARDIAC: Showed regular rhythm. ABDOMEN: Soft and nontender. SKIN AND EXTREMITIES: Show no edema, clubbing, or cyanosis. NEUROLOGICAL: Intact. ASSESSMENT: 1. Resolving community-acquired pneumonia with slowly improving hypoxic respiratory failure. 2. Diabetes type 2, controlled to goal. 3. Hypertension, controlled to goal. 4. Deconditioning. PLAN: Continue PT, OT. Continue to wean off oxygen. Continue Accu-Cheks to monitor and titrate and control diabetes. Job ID: [id number]
[2018-06-05] MEDS: metFORMIN 500 MG TAB PO SCH ×2 (08:18→20:41)
[2018-06-05] MEDS: Docusate 100 MG CAP PO SCH ×2 (08:18→20:41)
[2018-06-05] MEDS: Fish Oil 1,000 MG CAP PO SCH (08:18)
[2018-06-05] MEDS: Amlodipine 10 MG TAB PO SCH (08:18)
[2018-06-05] MEDS: Carvedilol 25 MG TAB PO SCH ×2 (08:19→20:40)
[2018-06-05] MEDS: Magnesium Oxide 400 MG TAB PO SCH ×2 (08:19→20:41)
[2018-06-05] MEDS: Lisinopril 20 MG TAB PO SCH ×2 (08:19→20:41)
[2018-06-05] MEDS: Enoxaparin Sodium 40 MG/0.4 ML SYRINGE SC SCH (08:19)
--- NOTE | 2018-06-05 14:45 | PRG ---
DATE OF SERVICE: 06/05/2018 SUBJECTIVE: Ms. Valiente is doing well. She is down to 1 L of oxygen. She is tolerating her therapy, still has some desaturation with activity. Denies any concerns or questions. No cough or congestion. We will discontinue her Mucinex. OBJECTIVE: VITAL SIGNS: She is afebrile. Heart rate is 64, respirations are 18, blood pressure 131/63. CARDIOVASCULAR SYSTEM: S1 and S2 plus. RESPIRATORY SYSTEM: Normal vesicular breath sounds. ABDOMEN: Soft, nontender, and obese. Bowel sounds heard in all quadrants. EXTREMITIES: Without cyanosis or clubbing. CENTRAL NERVOUS SYSTEM: Alert, awake, and oriented x3. Cranial nerves 2 through 12 intact. Grossly nonfocal. LABORATORY VALUES: Blood sugars are 90, 85, 90, 88, and 92. IMPRESSION: 1. Resolving community-acquired pneumonia. 2. Diabetes mellitus, type 2. 3. Hypertension. 4. Dyslipidemia. 5. Obesity. 6. Acute hypoxemic respiratory failure. She had slow improvement and improving deconditioning. PLAN: 1. Continue current medications. 2. Titrate oxygen. 3. Breathing treatments as needed. 4. DVT and stress ulcer prophylaxis. 5. Decubitus precautions. 6. 1800-calorie, heart-healthy, ADA diet. 7. Accu-Cheks with sliding scale coverage. 8. Discussed with the patient in detail. All questions answered. Job ID: [id number]
[2018-06-05] MEDS: guaiFENesin ER 600 MG TAB PO SCH (18:49)
[2018-06-05] MEDS: Aspirin 81 mg Enteric Coated Tablet PO SCH (20:40)
[2018-06-05] MEDS: Simvastatin 10 MG TAB PO SCH (20:41)
[2018-06-06 05:08] LABS: #Eosinphils 0.1 thou/uL (0.0-0.7); #Lymphocytes 1.4 thou/uL (1.20-3.40); #Monocytes 0.6 thou/uL (0.11-0.59); #Neutrophils 3.1 thou/uL (1.40-6.50); %Basophils 0.9 % (0.0-1.0); %Eosinophils 2.3 % (0.0-10.0); %Lymphocytes 26.5 % (21.0-51.0); %Monocytes 10.6 % (0.0-10.0); %Neutrophils 59.8 % (42.0-75.0); Hemoglobin 11.8 g/dL (12.0-16.0); Mean Corpuscular HGB CONC 30.9 g/dL (32.0-36.0); Mean Corpuscular Hemoglobin 29.4 pg (27.0-31.0); Mean Corpuscular Volume 95.1 fL (78.0-98.0); Mean Platelet Volume 7.4 fL (7.4-10.4); Platelet Count 284 thou/uL (130-400); RBC Distribution Width 15.5 % (11.5-14.5); Red Blood Cell (RBC) Count 4.03 mill/uL (4.20-5.40); White Blood Cell (WBC) Count 5.2 thou/uL (4.8-10.8)
[2018-06-06 05:10] LABS: MDiff Complete? YES; Manual Diff?? NO
[2018-06-06 05:25] LABS: Anion Gap 11 mmol/L (10-20); BUN (Urea Nitrogen) 7 mg/dL (9.8-20.1); Calc. Creatinine Clearance 155 mL/min (70-130); Calcium 10.3 mg/dL (7.8-10.44); Carbon Dioxide 31 mmol/L (23-31); Chloride 104 mmol/L (98-107); Estimated GFR-MDRD Greater than 90; Glucose 98 mg/dL (83-110); Potassium 3.9 mmol/L (3.5-5.1); Sodium 142 mmol/L (136-145)
[2018-06-06] MEDS: Mometasone/Formoterol 60 PUFF AER INH SCH ×2 (05:58→20:54)
[2018-06-06] MEDS: Enoxaparin Sodium 40 MG/0.4 ML SYRINGE SC SCH (09:13)
[2018-06-06] MEDS: Magnesium Oxide 400 MG TAB PO SCH ×2 (09:14→20:56)
[2018-06-06] MEDS: Carvedilol 25 MG TAB PO SCH ×2 (09:14→20:55)
[2018-06-06] MEDS: Amlodipine 10 MG TAB PO SCH (09:14)
[2018-06-06] MEDS: Fish Oil 1,000 MG CAP PO SCH (09:14)
[2018-06-06] MEDS: metFORMIN 500 MG TAB PO SCH ×2 (09:14→20:56)
[2018-06-06] MEDS: Lisinopril 20 MG TAB PO SCH ×2 (09:14→20:55)
[2018-06-06] MEDS: Docusate 100 MG CAP PO SCH ×2 (09:15→20:55)
--- NOTE | 2018-06-06 15:12 | PRG ---
DATE OF SERVICE: 06/06/2018 SUBJECTIVE: Ms. Valiente is doing the same. Denies any complaints. Resting comfortably. Slowly improving with therapy. No family at bedside. OBJECTIVE: VITAL SIGNS: She is afebrile, heart rate is 66, respirations 18, oxygen saturation is 95% on 1 L, and blood pressure is 130/64. CARDIOVASCULAR SYSTEM: S1 and S2 plus. RESPIRATORY SYSTEM: Normal vesicular breath sounds. ABDOMEN: Soft. Obese. Nontender. Bowel sounds heard in all quadrants. EXTREMITIES: Without cyanosis or clubbing. CENTRAL NERVOUS SYSTEM: AAOx3. Cranial nerves 2 through 12 intact. Motor system is grossly nonfocal except for generalized weakness. IMPRESSION: 1. Resolved community-acquired pneumonia. 2. Improving deconditioning. 3. Resolving acute hypoxemic respiratory failure. 4. Diabetes mellitus, type 2. 5. Hypertension. 6. Morbid obesity. 7. Dyslipidemia. PLAN: 1. Continue current medications. 2. 1800-calorie, heart healthy, ADA diet. 3. Accu-Cheks with sliding scale coverage. 4. DVT and stress ulcer prophylaxis. 5. Decubitus precautions. 6. Routine laboratory values. 7. Titrate oxygen. 8. Monitor respiratory system. 9. Continue physical therapy. 10. Routine laboratory values. Job ID: [id number]
[2018-06-06] MEDS: Aspirin 81 mg Enteric Coated Tablet PO SCH (20:55)
[2018-06-06] MEDS: Simvastatin 10 MG TAB PO SCH (20:56)
[2018-06-07] MEDS: Mometasone/Formoterol 60 PUFF AER INH SCH ×2 (05:26→18:11)
[2018-06-07] MEDS: Carvedilol 25 MG TAB PO SCH ×2 (08:43→20:13)
[2018-06-07] MEDS: Amlodipine 10 MG TAB PO SCH (08:43)
[2018-06-07] MEDS: Docusate 100 MG CAP PO SCH ×2 (08:44→20:13)
[2018-06-07] MEDS: Enoxaparin Sodium 40 MG/0.4 ML SYRINGE SC SCH (08:44)
[2018-06-07] MEDS: metFORMIN 500 MG TAB PO SCH ×2 (08:44→20:14)
[2018-06-07] MEDS: Fish Oil 1,000 MG CAP PO SCH (08:44)
[2018-06-07] MEDS: Lisinopril 20 MG TAB PO SCH ×2 (08:44→20:14)
[2018-06-07] MEDS: Magnesium Oxide 400 MG TAB PO SCH ×2 (08:44→20:14)
--- NOTE | 2018-06-07 14:01 | PRG ---
DATE OF SERVICE: 06/07/2018 SUBJECTIVE: Ms. Valiente is doing the same. Denies any complaints. Resting comfortably. Tolerating her therapy and her diet. She states that she feels like she is wearing some glasses, even though she is not. She states that this has been going on since before admission. She does not say that the vision is blurred, but she states she is not right. She has not seen double. She denies any flashing lights or colored halos. Denies any headaches or blurred vision. OBJECTIVE: VITAL SIGNS: She is afebrile, heart rate 65, respirations 18, oxygen saturation 93% on 1 L, and blood pressure is 122/58. CARDIOVASCULAR SYSTEM: S1 and S2 plus. RESPIRATORY SYSTEM: Normal vesicular breath sounds. ABDOMEN: Soft, obese, and nontender. Bowel sounds heard in all quadrants. EXTREMITIES: Without cyanosis or clubbing. CENTRAL NERVOUS SYSTEMS: Alert, awake, and oriented x3. Cranial nerves 2 through 12 intact. Motor system examination grossly nonfocal, except for generalized weakness. LABORATORY DATA: Blood sugars are 92, 93, 90, and 95. IMPRESSION: 1. Resolving community-acquired pneumonia. 2. Diabetes mellitus, type 2, well controlled. 3. Hypoxemia, improving. PLAN: 1. Monitor visual symptoms. It does not look like TIA. This is in both her eyes. No diplopia. I advised her that if it persists, to follow up with Ophthalmology as an outpatient. 2. Continue 1800-calorie, heart healthy, ADA diet. 3. Deep venous thrombosis and stress ulcer prophylaxis. 4. Decubitus precautions. 5. Physical therapy. 6. Routine laboratory values. Job ID: [id number]
[2018-06-07] MEDS: Aspirin 81 mg Enteric Coated Tablet PO SCH (20:13)
[2018-06-07] MEDS: Simvastatin 10 MG TAB PO SCH (20:14)
[2018-06-08] MEDS: Mometasone/Formoterol 60 PUFF AER INH SCH ×2 (05:59→18:22)
[2018-06-08] MEDS: Amlodipine 10 MG TAB PO SCH (08:23)
[2018-06-08] MEDS: Carvedilol 25 MG TAB PO SCH ×2 (08:23→20:40)
[2018-06-08] MEDS: Fish Oil 1,000 MG CAP PO SCH (08:24)
[2018-06-08] MEDS: Enoxaparin Sodium 40 MG/0.4 ML SYRINGE SC SCH (08:24)
[2018-06-08] MEDS: Lisinopril 20 MG TAB PO SCH ×2 (08:24→20:40)
[2018-06-08] MEDS: Docusate 100 MG CAP PO SCH ×2 (08:24→20:40)
[2018-06-08] MEDS: Magnesium Oxide 400 MG TAB PO SCH ×2 (08:25→20:39)
[2018-06-08] MEDS: metFORMIN 500 MG TAB PO SCH ×2 (08:25→20:39)
--- NOTE | 2018-06-08 09:33 | PRG ---
DATE OF SERVICE: 06/08/2018 SUBJECTIVE: Ms. Valiente is doing the same. Denies any concerns except some occasional abdominal cramping. She did move her bowels yesterday. She denies any nausea or vomiting. Denies any fever or chills. She also states that she can feel herself taking a deep breath in the substernal area, but denies any pain or pressure. Denies any shortness of breath. No family at bedside. OBJECTIVE: VITAL SIGNS: She is afebrile. Heart rate 63, respirations are 22, oxygen saturation 94% on 1 L, and blood pressure 122/56. CARDIOVASCULAR SYSTEM: S1 and S2 plus. RESPIRATORY SYSTEM: Normal vesicular breath sounds. No rubs heard in the lung sierra. ABDOMEN: Soft, obese, and nontender. Bowel sounds heard in all quadrants. EXTREMITIES: Without cyanosis or clubbing. CENTRAL NERVOUS SYSTEM: Alert, awake, and oriented x3. Cranial nerves II through XII intact. Motor system examination is grossly nonfocal. LABORATORY DATA: Laboratory value shows blood sugars of 90, 95, 86, and 87. IMPRESSION: 1. Resolved community-acquired pneumonia in the right lung sierra. 2. Diabetes mellitus type 2, excellent control. 3. Hypertension. 4. Dyslipidemia. 5. Obesity. 6. Resolving hypoxemia. PLAN: 1. Continue current medications. 2. Nutritional support. 3. 1800-calorie heart healthy ADA diet. 4. Accu-Cheks with sliding scale coverage. 5. Monitor blood pressure and adjust medication. 6. Breathing treatments as needed. 7. Physical therapy. 8. Recheck CBC and BMP in the morning. 9. Discussed with the patient in detail. Job ID: [id number]
[2018-06-08] MEDS: Simvastatin 10 MG TAB PO SCH (20:39)
[2018-06-08] MEDS: Aspirin 81 mg Enteric Coated Tablet PO SCH (20:40)
[2018-06-09 05:35] LABS: Hemoglobin 11.7 g/dL (12.0-16.0); Mean Corpuscular HGB CONC 30.1 g/dL (32.0-36.0); Mean Corpuscular Hemoglobin 28.9 pg (27.0-31.0); Mean Corpuscular Volume 96.2 fL (78.0-98.0); Red Blood Cell (RBC) Count 4.05 mill/uL (4.20-5.40); White Blood Cell (WBC) Count 5.1 thou/uL (4.8-10.8)
[2018-06-09 05:36] LABS: #Basophils 0.1 thou/uL (0.0-0.2); #Eosinphils 0.1 thou/uL (0.0-0.7); #Lymphocytes 1.2 thou/uL (1.20-3.40); #Monocytes 0.4 thou/uL (0.11-0.59); #Neutrophils 3.3 thou/uL (1.40-6.50); %Basophils 1.5 % (0.0-1.0); %Eosinophils 2.8 % (0.0-10.0); %Lymphocytes 24.2 % (21.0-51.0); %Monocytes 7.8 % (0.0-10.0); %Neutrophils 63.7 % (42.0-75.0); Mean Platelet Volume 7.1 fL (7.4-10.4); Platelet Count 231 thou/uL (130-400); RBC Distribution Width 15.4 % (11.5-14.5)
[2018-06-09] MEDS: Mometasone/Formoterol 60 PUFF AER INH SCH ×2 (05:45→18:09)
[2018-06-09 05:52] LABS: Anion Gap 11 mmol/L (10-20); BUN (Urea Nitrogen) 7 mg/dL (9.8-20.1); Calc. Creatinine Clearance 158 mL/min (70-130); Calcium 10.1 mg/dL (7.8-10.44); Carbon Dioxide 29 mmol/L (23-31); Chloride 105 mmol/L (98-107); Estimated GFR-MDRD Greater than 90; Glucose 104 mg/dL (83-110); Potassium 4.1 mmol/L (3.5-5.1); Sodium 141 mmol/L (136-145)
[2018-06-09] MEDS: metFORMIN 500 MG TAB PO SCH ×2 (08:27→21:21)
[2018-06-09] MEDS: Lisinopril 20 MG TAB PO SCH ×2 (08:27→21:23)
[2018-06-09] MEDS: Enoxaparin Sodium 40 MG/0.4 ML SYRINGE SC SCH (08:27)
[2018-06-09] MEDS: Fish Oil 1,000 MG CAP PO SCH (08:28)
[2018-06-09] MEDS: Amlodipine 10 MG TAB PO SCH (08:28)
[2018-06-09] MEDS: Docusate 100 MG CAP PO SCH ×2 (08:29→21:21)
[2018-06-09] MEDS: Magnesium Oxide 400 MG TAB PO SCH ×2 (08:29→21:21)
[2018-06-09] MEDS: Carvedilol 25 MG TAB PO SCH ×2 (08:29→21:22)
[2018-06-09] MEDS: Aspirin 81 mg Enteric Coated Tablet PO SCH (21:21)
[2018-06-09] MEDS: Simvastatin 10 MG TAB PO SCH (21:22)
[2018-06-10] MEDS: Mometasone/Formoterol 60 PUFF AER INH SCH ×2 (05:30→18:01)
[2018-06-10] MEDS: Magnesium Oxide 400 MG TAB PO SCH ×2 (09:47→20:07)
[2018-06-10] MEDS: Fish Oil 1,000 MG CAP PO SCH (09:47)
[2018-06-10] MEDS: Docusate 100 MG CAP PO SCH ×2 (09:47→20:06)
[2018-06-10] MEDS: Lisinopril 20 MG TAB PO SCH ×2 (09:47→20:07)
[2018-06-10] MEDS: metFORMIN 500 MG TAB PO SCH ×2 (09:47→20:04)
[2018-06-10] MEDS: Amlodipine 10 MG TAB PO SCH (09:47)
[2018-06-10] MEDS: Carvedilol 25 MG TAB PO SCH ×2 (09:47→20:04)
[2018-06-10] MEDS: Enoxaparin Sodium 40 MG/0.4 ML SYRINGE SC SCH (09:48)
[2018-06-10] MEDS: Simvastatin 10 MG TAB PO SCH (20:06)
[2018-06-10] MEDS: Aspirin 81 mg Enteric Coated Tablet PO SCH (20:07)
--- NOTE | 2018-06-10 23:36 | PRG ---
DATE OF SERVICE: 06/10/2018 SUBJECTIVE: The patient is a 78-year-old white female, who developed bilateral pneumonia with a sherry out lung. She got admitted to Intensive Care Unit at [facility], started on IV antibiotics, IV steroids and BiPAP. She had to be intubated and eventually was stabilized and extubated. Because of extreme weakness, she was transferred here for Physical Therapy and Occupational Therapy to increase her strength and stamina. OBJECTIVE: VITAL SIGNS: Today reveal blood pressure 145/65, pulse 93 to 95, respirations 20, O2 saturation 93% to 95% on 1 L nasal cannula, and T-max 98.3. GENERAL: This is a well-developed, well-nourished, very pleasant, slightly obese female, in no apparent distress at this time. HEENT: Reveals normocephalic, nontraumatic cranium. Pupils are equally round and reactive. Extraocular movements are intact. Nose and throat are moist. NECK: Supple without masses, nodes or bruits. CHEST: Clear to auscultation. Breath sounds are distant. No rales, rhonchi, or wheezes are noted. No cough is noted today. HEART: Reveals a regular rate and rhythm without murmurs, gallops, or rubs. ABDOMEN: Morbidly obese, soft, nontender without organomegaly. Normal bowel sounds are noted in all four quadrants. No rebound or guarding is noted. : Deferred. EXTREMITIES: Reveal no clubbing, cyanosis, or edema. IMPRESSION: 1. Diabetes type 2. 2. Hypertension. 3. Hyperlipidemia. 4. Significant deconditioning. 5. Community-acquired pneumonia, resolved. 6. Hypoxic hypercapnic respiratory failure. 7. Morbid obesity. 8. Generalized weakness. PLAN: 1. Continue to monitor the patient's diabetes with Accu-Cheks a.c. and h.s. 2. Continue Physical Therapy and Occupational Therapy. 3. Continue her 1800 ADA diet. 4. Stress ulcer prophylaxis. 5. Decubitus precautions. 6. DVT prophylaxis. 7. Titrate oxygen as able. 8. Continue PT and OT. Job ID: [id number]
[2018-06-11] MEDS: Mometasone/Formoterol 60 PUFF AER INH SCH ×2 (05:42→18:21)
--- NOTE | 2018-06-11 08:06 | PRG ---
DATE OF SERVICE: 06/11/2018 SUBJECTIVE: Ms. Valiente is a very pleasant 78-year-old white female, who developed bilateral pneumonia. She also sherry out her lung. She was admitted to the intensive care unit at [facility] and had to be intubated. She was started on IV antibiotics and IV steroids. She eventually was extubated and stabilized. She was transferred here because of her extreme weakness. She is here for physical therapy and occupational therapy to increase her strength, stamina, and balance. OBJECTIVE: VITAL SIGNS: This morning reveal blood pressure 143/61, pulse 75, respirations 20, O2 saturation 93% to 95% on 1 L nasal cannula, T-max 98.3. PHYSICAL EXAMINATION: GENERAL: This is a well-developed, well-nourished, somewhat obese, white female, in no apparent distress at this time. HEENT: Reveals normocephalic, nontraumatic cranium. Pupils equally round and reactive. Extraocular movements are intact. Nose and throat are moist. NECK: Supple without masses, nodes, or bruits. CHEST: Clear to auscultation. No rales, rhonchi, or wheezes are noted. Breath sounds are somewhat distant. No cough is noted today. HEART: Reveals a regular rate and rhythm without murmurs, gallops, or rubs. ABDOMEN: Soft, nontender without organomegaly. Morbidly obese. Normal bowel sounds are noted in all 4 quadrants. No rebound or guarding is noted. : Deferred. EXTREMITIES: Reveal no clubbing, cyanosis, or edema. IMPRESSION: 1. Diabetes type 2. 2. Hypertension. 3. Hyperlipidemia. 4. Significant weakness with deconditioning. 5. Community-acquired pneumonia, resolved. 6. Hypoxic hypercapnic respiratory failure. 7. Morbid obesity. 8. Generalized weakness. PLAN: 1. Continue to monitor the patient's diabetes with Accu-Cheks a.c. and h.s. and adjust insulin as needed. 2. Continue 1800 ADA diet. 3. Stress ulcer prophylaxis. 4. Decubitus precautions. 5. DVT prophylaxis. 6. Wean oxygen as able. 7. Continue PT and OT. Job ID: [id number]
[2018-06-11] MEDS: Carvedilol 25 MG TAB PO SCH ×2 (09:33→20:04)
[2018-06-11] MEDS: metFORMIN 500 MG TAB PO SCH ×2 (09:33→20:03)
[2018-06-11] MEDS: Magnesium Oxide 400 MG TAB PO SCH ×2 (09:33→20:04)
[2018-06-11] MEDS: Enoxaparin Sodium 40 MG/0.4 ML SYRINGE SC SCH (09:33)
[2018-06-11] MEDS: Docusate 100 MG CAP PO SCH ×2 (09:33→20:03)
[2018-06-11] MEDS: Lisinopril 20 MG TAB PO SCH ×2 (09:34→20:02)
[2018-06-11] MEDS: Amlodipine 10 MG TAB PO SCH (09:34)
[2018-06-11] MEDS: Fish Oil 1,000 MG CAP PO SCH (09:34)
[2018-06-11] MEDS: Aspirin 81 mg Enteric Coated Tablet PO SCH (20:03)
[2018-06-11] MEDS: Simvastatin 10 MG TAB PO SCH (20:03)
[2018-06-12] MEDS: Mometasone/Formoterol 60 PUFF AER INH SCH ×2 (05:31→18:39)
[2018-06-12] MEDS: Amlodipine 10 MG TAB PO SCH (08:41)
[2018-06-12] MEDS: Carvedilol 25 MG TAB PO SCH ×2 (08:42→20:43)
[2018-06-12] MEDS: Docusate 100 MG CAP PO SCH ×2 (08:43→20:43)
[2018-06-12] MEDS: Enoxaparin Sodium 40 MG/0.4 ML SYRINGE SC SCH (08:43)
[2018-06-12] MEDS: Fish Oil 1,000 MG CAP PO SCH (08:43)
[2018-06-12] MEDS: Lisinopril 20 MG TAB PO SCH ×2 (08:43→20:43)
[2018-06-12] MEDS: Magnesium Oxide 400 MG TAB PO SCH ×2 (08:44→20:42)
[2018-06-12] MEDS: metFORMIN 500 MG TAB PO SCH ×2 (08:44→20:43)
--- NOTE | 2018-06-12 13:29 | PRG ---
DATE OF SERVICE: 06/12/2018 SUBJECTIVE: Ms. Valiente is doing well. Denies any complaints, resting comfortably, tolerating her therapy. She still desaturates when she is active and is requiring 1 L of oxygen, we will contact case management to make arrangements. From the nursing standpoint, they feel that she is pretty close to discharge. We will see how the case conference goes tomorrow and I am anticipating discharge in the next few days if all are in agreement. OBJECTIVE: VITAL SIGNS: She is afebrile. Heart rate is 67, respirations 20, oxygen saturation 92% on 1 L. Blood pressure 154/78. CARDIOVASCULAR: S1, S2 plus. RESPIRATORY: Normal vesicular breath sounds. ABDOMEN: Soft, nontender. Bowel sounds heard in all quadrants. Obese. EXTREMITIES: Without cyanosis, clubbing. CENTRAL NERVOUS SYSTEM: Alert, awake, and oriented x3. Cranial nerves 2 through 12 intact. Motor system examination is grossly nonfocal except for improving weakness. LABORATORY DATA: White count is 5.1, H and H are 11.7 and 38.9. Blood sugars are 96, 91, 109, 91, 91. Sodium 141, potassium 4.1, BUN and creatinine 7 and 0.53. IMPRESSION: 1. Resolved community-acquired pneumonia. 2. Improving acute hypoxemic respiratory failure. 3. Diabetes mellitus type 2, well controlled. 4. Hypertension. 5. Dyslipidemia. 6. Morbid obesity. 7. Improving deconditioning. PLAN: 1. Continue 1800 calorie heart healthy ADA diet. 2. Arrange for home oxygen. 3. Monitor blood sugars. 4. DVT and stress ulcer prophylaxis. 5. Decubitus precautions. 6. Physical therapy. 7. Discharge planning. 8. Discussed with the patient and nursing in detail. All questions answered. Job ID: [id number]
[2018-06-12] MEDS: Aspirin 81 mg Enteric Coated Tablet PO SCH (20:42)
[2018-06-12] MEDS: Simvastatin 10 MG TAB PO SCH (20:43)
[2018-06-13] MEDS: Mometasone/Formoterol 60 PUFF AER INH SCH ×2 (05:46→18:39)
[2018-06-13] MEDS: Enoxaparin Sodium 40 MG/0.4 ML SYRINGE SC SCH (09:15)
[2018-06-13] MEDS: Fish Oil 1,000 MG CAP PO SCH (09:17)
[2018-06-13] MEDS: Docusate 100 MG CAP PO SCH ×2 (09:17→20:07)
[2018-06-13] MEDS: Magnesium Oxide 400 MG TAB PO SCH ×2 (09:17→20:08)
[2018-06-13] MEDS: Amlodipine 10 MG TAB PO SCH (09:18)
[2018-06-13] MEDS: metFORMIN 500 MG TAB PO SCH ×2 (09:18→20:08)
[2018-06-13] MEDS: Lisinopril 20 MG TAB PO SCH ×2 (09:18→20:07)
[2018-06-13] MEDS: Carvedilol 25 MG TAB PO SCH ×2 (09:19→20:07)
[2018-06-13] MEDS: Aspirin 81 mg Enteric Coated Tablet PO SCH (20:07)
[2018-06-13] MEDS: Simvastatin 10 MG TAB PO SCH (20:08)
[2018-06-14] MEDS: Mometasone/Formoterol 60 PUFF AER INH SCH ×2 (05:30→18:28)
[2018-06-14] MEDS: Lisinopril 20 MG TAB PO SCH ×2 (09:39→20:12)
[2018-06-14] MEDS: Docusate 100 MG CAP PO SCH ×2 (09:39→20:12)
[2018-06-14] MEDS: Amlodipine 10 MG TAB PO SCH (09:39)
[2018-06-14] MEDS: metFORMIN 500 MG TAB PO SCH ×2 (09:39→20:12)
[2018-06-14] MEDS: Carvedilol 25 MG TAB PO SCH ×2 (09:40→20:11)
[2018-06-14] MEDS: Enoxaparin Sodium 40 MG/0.4 ML SYRINGE SC SCH (09:40)
[2018-06-14] MEDS: Fish Oil 1,000 MG CAP PO SCH (09:40)
[2018-06-14] MEDS: Magnesium Oxide 400 MG TAB PO SCH ×2 (09:40→20:12)
[2018-06-14] MEDS: Aspirin 81 mg Enteric Coated Tablet PO SCH (20:11)
[2018-06-14] MEDS: Simvastatin 10 MG TAB PO SCH (20:12)
--- NOTE | 2018-06-15 04:46 | DIS ---
DATE OF ADMISSION: 05/18/2018 DATE OF DISCHARGE: 06/14/2018 PRINCIPAL DIAGNOSES: 1. Resolved community-acquired pneumonia. 2. Acute hypoxemic respiratory failure, much improved. 3. Diabetes mellitus, type 2, well controlled. 4. Hypertension. 5. Dyslipidemia. 6. Vitamin D deficiency. 7. Morbid obesity. COMPLICATIONS: None. ADVERSE REACTIONS: None. PROCEDURES: None. CONSULTATIONS: None. HOSPITAL COURSE: Patient was admitted on 05/18/2018, as a transfer from [facility] due to acute hypoxemic respiratory failure requiring oxygen as well as deconditioning. [place] and from the house was very easy due to all the range and it was felt that she would benefit from detention here in [place]. She has done remarkably well. Her blood sugars have remained under excellent control. Blood pressure has been good. Her oxygen requirements have come down from 4 L to now ranging anywhere from 0.5 to 1 L. She still desaturates with activity. Arrangements for home health and home oxygen have been made. She apparently had [facility] before. She was advised to follow up with her regular physician and have them repeat a chest x-ray in the next couple of weeks. I have written orders for her to get oxygen for the next six months, but I think she probably will need it only week for a couple. Home Health to be followed by her primary care physician. I just spoke with therapy and therapy stating that she was deemed stable for discharge as long as she has home health. No family at bedside, but I have talked to her brother a couple of times and her spouse once. OBJECTIVE: VITALS SIGNS: She is afebrile, heart rate is 59, respirations 16, oxygen saturation 94% on 1 L, and blood pressure 124/69. CARDIOVASCULAR: S1, S2 plus. RESPIRATORY: Normal vesicular breath sounds. ABDOMEN: Soft, obese, and nontender. Bowel sounds in all quadrants. EXTREMITIES: Without cyanosis or clubbing. Trace edema. Peripheral pulses are palpable. CENTRAL NERVOUS SYSTEM: Alert, awake, and oriented x3. Cranial nerves 2 through 12 intact. Motor system examination is grossly nonfocal. LABORATORY VALUES: Blood sugars are 97, 80, 88, 88, 191. DISCHARGE MEDICATIONS: Will be: 1. Amlodipine 10 mg daily. 2. Aspirin 81 mg daily. 3. Carvedilol 12.5 mg b.i.d. 4. Lovastatin 10 mg daily. 5. Metformin 500 mg b.i.d. 6. Dulera two puffs inhalation twice daily. 7. Fish oil capsule one capsule daily. 8. Accupril 20 mg b.i.d. 9. Calcium with vitamin D3 two tablets in the morning, one in the evening. 10. She has been tapered off her prednisone. We will check with her and see if she was using the inhalers at home and if she has a diagnosis of COPD. If not, she does not need the Dulera as well. DISCHARGE DIET: 1800-calorie heart healthy ADA diet. ACTIVITY: As tolerated. FOLLOWUP: Outpatient follow up with primary care physician. DISCHARGE INSTRUCTIONS: Repeat chest x-ray in a couple of weeks. She is to call us with any questions or concerns. She also stated that she does not need any refills. She states all of these medicines were she was taking before, but I will double check on inhaler. Total time spent on this discharge 35 minutes. Job ID: [id number]
[2018-06-15] MEDS: Mometasone/Formoterol 60 PUFF AER INH SCH ×2 (05:57→18:33)
[2018-06-15] MEDS: Enoxaparin Sodium 40 MG/0.4 ML SYRINGE SC SCH (09:17)
[2018-06-15] MEDS: Magnesium Oxide 400 MG TAB PO SCH ×2 (09:17→20:49)
[2018-06-15] MEDS: Lisinopril 20 MG TAB PO SCH ×2 (09:17→20:50)
[2018-06-15] MEDS: Docusate 100 MG CAP PO SCH ×2 (09:17→20:49)
[2018-06-15] MEDS: Fish Oil 1,000 MG CAP PO SCH (09:17)
[2018-06-15] MEDS: Carvedilol 25 MG TAB PO SCH ×2 (09:17→20:49)
[2018-06-15] MEDS: Amlodipine 10 MG TAB PO SCH (09:17)
[2018-06-15] MEDS: metFORMIN 500 MG TAB PO SCH ×2 (09:17→20:49)
--- NOTE | 2018-06-15 13:57 | PRG ---
DATE OF SERVICE: 06/15/2018 SUBJECTIVE: Ms. Valiente was supposed to be discharged yesterday, but her insurance would not pay for her oxygen. She was kept here for a couple more days, and she is actually doing better today. She is off her oxygen. She is saturating anywhere between 89% and 93%, and the plan is to continue to monitor her today and tonight without any oxygen and encouraging, incentive spirometer, and good breathing techniques and if she does well with her oxygen saturation even tomorrow, especially with activity, then she will be discharged home. Discharge medications will all remain the same. Discussed with the patient and all questions answered. No family at bedside today. PHYSICAL EXAMINATION: GENERAL: She is afebrile, heart rate 61, respirations 18, oxygen saturation 93%, and blood pressure 136/63. CARDIOVASCULAR SYSTEM: S1 and S2 plus. RESPIRATORY SYSTEM: Normal vesicular breath sounds. GENERAL: Soft, obese, and nontender. Bowel sounds in all quadrants. EXTREMITIES: Without cyanosis or clubbing. Peripheral pulses are palpable. CENTRAL NERVOUS SYSTEM: Grossly nonfocal. Her oxygen saturation now is 93% on room air. IMPRESSION: 1. Diabetes mellitus, type 2. 2. Resolving medical pneumonia. 3. Resolved hypoxemia. 4. Diabetes mellitus, type 2. 5. Hypertension. 6. Dyslipidemia. 7. Morbid obesity. PLAN: 1. Continue 1800-calorie, heart healthy, ADA diet. 2. Physical therapy. 3. DVT and stress ulcer prophylaxis. 4. Decubitus precautions. 5. Accu-Cheks with sliding scale. 6. Monitor oxygen levels and as per discharge tomorrow. Job ID: [id number]
[2018-06-15] MEDS: Simvastatin 10 MG TAB PO SCH (20:48)
[2018-06-15] MEDS: Aspirin 81 mg Enteric Coated Tablet PO SCH (20:49)
[2018-06-16] MEDS: Mometasone/Formoterol 60 PUFF AER INH SCH (05:42)
[2018-06-16] MEDS: Enoxaparin Sodium 40 MG/0.4 ML SYRINGE SC SCH (09:03)
[2018-06-16] MEDS: Fish Oil 1,000 MG CAP PO SCH (09:04)
[2018-06-16] MEDS: Amlodipine 10 MG TAB PO SCH (09:04)
[2018-06-16] MEDS: Lisinopril 20 MG TAB PO SCH (09:04)
[2018-06-16] MEDS: Docusate 100 MG CAP PO SCH (09:05)
[2018-06-16] MEDS: Carvedilol 25 MG TAB PO SCH (09:05)
[2018-06-16] MEDS: metFORMIN 500 MG TAB PO SCH (09:05)
[2018-06-16] MEDS: Magnesium Oxide 400 MG TAB PO SCH (09:05)
[2018-06-16 11:38] VITALS: TEMP 96.6
--- NOTE | 2018-06-16 12:03 | DIS ---
DATE OF ADMISSION: 05/18/2018 DATE OF DISCHARGE: 06/16/2018 PRINCIPAL DIAGNOSES: 1. Resolved community-acquired pneumonia. 2. Resolved hypoxemic respiratory failure. 3. Possible obstructive sleep apnea. 4. Diabetes mellitus type 2. 5. Hypertension. 6. Dyslipidemia. 7. Vitamin D deficiency. 8. Morbid obesity. COMPLICATIONS: None. ADVERSE REACTIONS: None. PROCEDURES: None. CONSULTATIONS: Physical Therapy and Occupational Therapy. HOSPITAL COURSE: The patient was admitted on 05/18 after being admitted to [facility] with a right-sided community-acquired pneumonia. Cultures were negative. She was noted to be significantly hypoxemic and weak. She was transferred here for therapy. She has improved gradually. Her oxygen requirements initially were 4 L and it is down 0.5 L. She was supposed to be discharged home 2 days ago, but her insurance refused to pay for her oxygen. She was kept here a couple more days, but she has been off her oxygen and even when walking short distances, her oxygen levels are good. When they tried to get her walking about 300 feet, then her oxygen saturation dipped into the 86, but came right back to 88. The patient apparently was also told that she may have sleep apnea and obesity hypoventilation and requires a sleep study. The patient is comfortable going home. She was advised to take breaks and not do any continuous activity. She was advised to come back to the emergency room if she develops any shortness of breath or persistent shortness of breath, chest pain, lightheadedness, or dizziness. Otherwise, she was advised to follow up with her primary care physician within 3 to 5 days. PHYSICAL EXAMINATION: VITAL SIGNS: On the day of discharge, she is afebrile, heart rate 64, respirations 20, blood pressure 125/59, oxygen saturation 95% on room air. CARDIOVASCULAR: S1 and S2 plus. Rate and rhythm regular. RESPIRATORY: Normal vesicular breath sounds heard on all lung sierra. ABDOMEN: Soft, obese, nontender. Bowel sounds heard in all quadrants. EXTREMITIES: Without cyanosis or clubbing. Peripheral pulses are palpable. CENTRAL NERVOUS SYSTEM: Grossly nonfocal. LABORATORY VALUES: Blood sugars are 108, 85, 99, and 86. DISCHARGE MEDICATIONS: 1. Amlodipine 10 mg daily. 2. Aspirin 81 mg daily. 3. Carvedilol 12.5 mg b.i.d. 4. Lovastatin 10 mg daily. 5. Metformin 500 mg b.i.d. 6. Accupril 20 mg b.i.d. 7. Calcium tablets as before. 8. Vitamin D tablets as before. As stated, she is to follow up with her primary care physician in 3 to 5 days. She is to return to the ER if she develops any shortness of breath, lightheadedness, dizziness, chest pain. No family at bedside. For full details, please see chart. Job ID: [id number]
[2018-06-16 17:04] VITALS: BP 159/77
== END 2018-06-16 14:45 | disposition home health service (06) | DRG 193 ==
LOC: NAV ACUTE 15:36
PROVIDERS: ADMIT Internal Medicine; ATTEND Internal Medicine
DX: J18.9 Pneumonia, unspecified organism (principal); J96.01 Acute respiratory failure with hypoxia; Z68.41 Body mass index [BMI] 40.0-44.9, adult; E11.9 Type 2 diabetes mellitus without complications; I10 Essential (primary) hypertension; E78.5 Hyperlipidemia, unspecified; R53.81 Other malaise; E66.01 Morbid (severe) obesity due to excess calories; G47.33 Obstructive sleep apnea (adult) (pediatric); E87.6 Hypokalemia; E83.42 Hypomagnesemia; K59.00 Constipation, unspecified; E83.52 Hypercalcemia; Z79.84 Long term (current) use of oral hypoglycemic drugs; Z79.899 Other long term (current) drug therapy
CPT/HCPCS: 36415; 36416; 80048; 83735; 85025; 94640; J1650; J7070; J7512; J7620

== ENCOUNTER 2018-06-28 13:31 | Outpatient (CLI) | payer MEDICARE ==
--- NOTE | 2018-06-28 14:29 | RAD ---
TWO VIEW CHEST: Comparison: 05-16-18 Indication: Pneumonia. FINDINGS: There is no lobar consolidation, effusion, or discrete pneumothorax. Cardiac silhouette is at upper l imits of normal in size. There is elevation of the left hemidiaphragm with blunting of the left later al costophrenic sulcus. Clips are seen at the upper chest near the midline. There are sternotomy wire s. IMPRESSION: 1. No focal consolidation. 2. Pleural based density at the inferior left chest could relate to pleural fluid versus pleural thic kening. POS: SONIA
== END 2018-06-28 13:32 | disposition home or self-care (01) ==
LOC: NAV RAD 13:31
PROVIDERS: ATTEND Nurse Practitioner Family
DX: J18.9 Pneumonia, unspecified organism (principal); R91.8 Other nonspecific abnormal finding of lung field
CPT/HCPCS: 71046